=== PATIENT | female | born 1995 | race Caucasian/White ===

== ENCOUNTER 2021-07-24 06:00 | Outpatient (RCR) | payer OTHER, SELFPAY | END 2021-07-24 23:59 | disposition home or self-care (01) | LOC: MPT 06:00 | PROVIDERS: Referring Provider Physician Assistant; Visit Provider Physician Assistant | DX: M54.9 Dorsalgia, unspecified (principal) | CPT/HCPCS: 97162 ==

== ENCOUNTER 2021-07-25 06:00 | Outpatient (RCR) | payer OTHER, SELFPAY | END 2021-08-23 23:59 | disposition home or self-care (01) | LOC: MPT 06:00 | PROVIDERS: Referring Provider Physician Assistant; Visit Provider Physician Assistant | DX: M54.9 Dorsalgia, unspecified (principal) | CPT/HCPCS: 97110 ==

== ENCOUNTER 2021-08-24 06:00 | Outpatient (RCR) | payer OTHER, SELFPAY | END 2021-09-16 23:59 | disposition home or self-care (01) | LOC: MPT 06:00 | PROVIDERS: Referring Provider Physician Assistant; Visit Provider Physician Assistant | DX: M54.9 Dorsalgia, unspecified (principal) | CPT/HCPCS: 97110 ==

== ENCOUNTER → 2023-11-29 12:09 | Outpatient (BNVA) | payer OTHER, SELFPAY | PROVIDERS: Visit Provider Registered Nurse Neonatal Intensive Care | DX: J02.9 Acute pharyngitis, unspecified (principal) | CPT/HCPCS: 87880 ==